=== PATIENT | male | born 1995 | race Asian ===

== ENCOUNTER 2018-08-12 02:11 | Emergency (ER) | payer OTHER ==
[2018-08-12 02:27] VITALS: BP 132/97
[2018-08-12] MEDS ORDERED: NS 0.9% 1000 ML** 1,000 ML IV ONE (02:46)
[2018-08-12] MEDS ORDERED: Metoclopramide IV* 5 MG/ML 2 ML VIAL IV SLOW PU ONE (02:49)
[2018-08-12] MEDS ORDERED: Ketorolac INJ* 30 MG/ML 1 ML VIAL IV PUSH ONE (02:49)
[2018-08-12] MEDS ORDERED: Pantoprazole IV* 40 MG IV ONE (02:49)
--- NOTE | 2018-08-12 03:36 | ED ---
Abdominal Pain/Male - HPI Summary HPI Summary: The patient is a 23 year old male who is presenting to the [facility] with a chief complaint of abd pain. The pain began at 1999 today and is stated to be a constant pain. According to the patient, he had ingested seafood today at 1800. The patient denies N/V/D. He has attempted to vomit and was not successful. The patient also denies of any past surgical hx. The last bowel movement was at 1200 08/11/18. The symptoms are aggravated by nothing. The symptoms are alleviated by nothing. The pain is rated to be a 8/10 in severity. - History of Current Complaint Chief Complaint: EDAbdPain Stated Complaint: ABD PAIN PER PT Time Seen by Provider: 08/12/18 02:39 Hx Obtained From: Patient Onset/Duration: Sudden Onset Timing: Constant, Lasting Hours - since 199908/11/18 Severity Initially: Severe Severity Currently: Severe Pain Intensity: 8 Pain Scale Used: 0-10 Numeric Aggravating Factor(s): Nothing Alleviating Factor(s): Nothing Associated Signs And Symptoms: Negative: Nausea, Vomiting, Diarrhea - Allergies/Home Medications Allergies/Adverse Reactions: Allergies Allergy/AdvReac Type Severity Reaction Status Date / Time No Known Allergies Allergy Verified 08/12/18 02:27 PMH/Surg Hx/FS Hx/Imm Hx Sensory History: Denies: Hx Deafness Opthamlomology History: Denies: Hx Legally Blind EENT History: Denies: Hx Deafness Infectious Disease History: No Infectious Disease History: Reports: Traveled Outside the [place] in Last 30 Days - Family History Known Family History: Positive: Non-Contributory Family History: Reviewed and Noncontributory - Social History Occupation: Student Lives: Dormitory/Roommates Alcohol Use: None Substance Use Type: Reports: None Smoking Status (MU): Never Smoked Tobacco Review of Systems Constitutional: Negative Eyes: Negative ENT: Negative Cardiovascular: Negative Respiratory: Negative Positive: Abdominal Pain - Epigastric. Negative: Vomiting, Diarrhea, Nausea Genitourinary: Negative Musculoskeletal: Negative Skin: Negative Neurological: Negative Psychological: Normal All Other Systems Reviewed And Are Negative: Yes Physical Exam - Summary Physical Exam Summary: VITAL SIGNS: Reviewed. GENERAL: Patient is a well-developed and nourished (MALE) who is lying comfortable in the stretcher. Patient is not in any acute respiratory distress. HEAD AND FACE: No signs of trauma. No ecchymosis, hematomas or skull depressions. No sinus tenderness. EYES: PERRLA, EOMI x 2, No injected conjunctiva, no nystagmus. EARS: Hearing grossly intact. Ear canals and tympanic membranes are within normal limits. MOUTH: Oropharynx within normal limits. NECK: Supple, trachea is midline, no adenopathy, no JVD, no carotid bruit, no c- spine tenderness, neck with full ROM. CHEST: Symmetric, no tenderness at palpation LUNGS: Clear to auscultation bilaterally. No wheezing or crackles. CVS: Regular rate and rhythm, S1 and S2 present, no murmurs or gallops appreciated. ABDOMEN: Epigastric tenderness; Mild hyperactive bowel sounds EXTREMITIES: FROM in all major joints, no edema, no cyanosis or clubbing. NEURO: Alert and oriented x 3. No acute neurological deficits. Speech is normal and follows commands. SKIN: Dry and warm Triage Information Reviewed: Yes Vital Signs On Initial Exam: Initial Vitals Temp Pulse Resp BP Pulse Ox 97.6 F 99 18 132/97 97 08/12/18 02:21 08/12/18 02:21 08/12/18 02:21 08/12/18 02:21 08/12/18 02:21 Vital Signs Reviewed: Yes Diagnostics - Vital Signs Vital Signs Temp Pulse Resp BP Pulse Ox 08/12/18 02:21 97.6 F 99 18 132/97 97 - Laboratory Lab Statement: Any lab studies that have been ordered have been reviewed, and results considered in the medical decision making process. Abdominal Pain Male Course/Dx - Course Course Of Treatment: The patient is a 23 year old male who is presenting to the [facility] with a chief complaint of abd pain at the epigastric region. During the his stay at the [facility], the patient refused all blood work, and imaging. We explained to the patient that he has the potential to have appendicitus, perforation, peritonitis or sepsis which could lead to . The patient still refused to receive any work up and will leave AGAINST MEDICAL ADVICE. The dx will be abd pain. - Diagnoses Provider Diagnoses: Abdominal pain Discharge - Sign-Out/Discharge Documenting (check all that apply): Patient Departure Patient Received Moderate/Deep Sedation with Procedure: No - Discharge Plan Condition: Stable Disposition: AGAINST MEDICAL ADVICE Patient Education Materials: Acute Abdominal Pain (ED), Peritonitis (ED) Referrals: [facility]FERR[facility] [Outside] Additional Instructions: RETURN TO THE EMERGENCY DEPARTMENT FOR CHANGING OR WORSENING SYMPTOMS.FOLLOW UP WITH YOUR PRIMARY CARE PROVIDER SOON POSSIBLE. - Attestation Statements Document Initiated by Justyn: Yes Documenting Scribe: Rene Gaspar Provider For Whom Scribe is Documenting (Include Credential): Dr. Isrrael Juarez Scribe Attestation: I, Rene Gaspar, scribed for Dr. Isrrael Juarez on 08/12/18 at 0337. Status of Scribe Document: Ready
== END 2018-08-12 03:26 | disposition left against medical advice (07) ==
LOC: ED 02:11
DX: R10.9 Unspecified abdominal pain (principal); Z53.21 Procedure and treatment not carried out due to patient leaving prior to being seen by health care provider
CPT/HCPCS: 96361; 96374; 96375; 99282; J1885; J2765